=== PATIENT | male | born 1965 | race Caucasian/White ===

== ENCOUNTER 2024-01-02 18:16 | Emergency (ER) | payer BC, SELFPAY ==
[2024-01-02 18:17] VITALS: BP 155/105
[2024-01-02 18:20] LABS: Glucose - Point of Care 123 mg/dl (70-99)
[2024-01-02 18:57] VITALS: BMI 31.7
[2024-01-02 19:02] VITALS: BP 153/97
[2024-01-02 20:00] VITALS: BP 159/94
[2024-01-02] MEDS: POLYTRIM OPHTHALMIC SOLUTION 1 DROP OPHTH (20:15)
[2024-01-02 20:23] LABS: % Basophils 0.6 % (0-2); % Eosinophils 1.1 % (0-6); % Immature Granulocytes 0.4 % (0-0.5); % Lymphocytes 22.7 % (20.5-51.1); % Monocytes 12.2 % (1.7-9.3); Absolute Eosinophils 0.1 10^3/uL (0-0.7); Absolute Lymphocytes 1.6 10^3/uL (1.2-3.4); Absolute Monocytes 0.9 10^3/uL (0.1-0.6); Absolute Neutrophils 4.5 10^3/uL (1.4-6.5); Hematocrit 46.9 % (39.0-52.0); Hemoglobin 17.1 g/dL (13.0-18.0); Mean Corp Hgb Conc. 36.5 g/dL (33.0-37.0); Mean Corpuscular Hgb 31.8 pg (27.0-31.0); Mean Corpuscular Volume 87.3 fL (80.0-94.0); Mean Platelet Volume 9.5 fL (7.4-10.4); Nucleated Red Blood Cells % 0 % (-); Platelet Count 247 10^3/uL (130-400); Red Blood Cell Count 5.37 10^6/uL (4.70-6.10); Red Cell Dist. Width 12.2 % (11.5-14.5); White Blood Cell Count 7.2 10^3/uL (4.8-10.8)
--- NOTE | 2024-01-02 20:32 | ED.GENMED ---
History of Present Illness
General
Chief Complaint: Weakness
Source: patient
Exam Limitations: none
Time Seen by Provider: 01/02/24 19:18
Nursing documentation reviewed up to this point in time: agreed with
Travel History
Have you had any contact with someone who has COVID-19?: No
Do you have any symptoms of coronavirus? Fever > 100 degrees, chills, cough, shortness of breath, sore throat, loss of taste or smell, muscle aches, or headache?: No
History of Present Illness
History of Present Illness:
Patient is a 58-year-old man who reports that he was cooking dinner for his children and developed sudden onset of generalized weakness, lightheadedness, chest pain, and mild shortness of breath. Patient attributes his symptoms to recently starting
[place], however, he denies any nausea, vomiting and diarrhea. Patient reports that the episode occurred about 4 hours ago. He reports he now feels completely back to himself and denies all complaints. He no longer has any shortness of breath or
chest pain. He denies leg pain and leg swelling. He denies a history of PE and DVT. In addition, patient reports that his right eye feels irritated, has been slightly red, and feels as though his upper and lower eyelids are sticky. Patient also
reports occasional floaters from his right eye, however, he denies eye pain and headache.
Past History
Past History
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
ED Past Surgical History: None, Orthopedic (Left wrist surgery, ), Urological (Status post vasectomy, ) and Other (Thymoma)
Social History
Tobacco: Non-smoker
Alcohol: Occasional
Drug: Other
Personal:
Living: with family
Employment: Employed
Family History
Family History: Negative Diabetes, Hypertension or CAD
Review of Systems
Review of Systems
Allergies reviewed?: Yes
All Other Systems: ROS reviewed and negative except as documented in HPI and ROS
Constitutional: Reports fatigue
EENT: Reports other (Right eye redness)
Respiratory: Reports trouble breathing
Cardiac: Reports chest pain
ABD/GI: Reports no symptoms
: Reports no symptoms
Musculoskeletal: Reports no symptoms
Skin: Reports no symptoms
Neurological: Reports no symptoms
Endocrine: Reports no symptoms
Hematologic/Lymphatic: Reports no symptoms
Psychiatric: Reports no symptoms
Phy Exam
Physical Exam
Physical Exam:
Physical Exam
General: no apparent distress, not acutely ill. Patient appears very well and comfortable appearing, smiling and conversational
Neck: supple. no meningeal signs. normal psoterior pharynx. Right eye appears injected. No global tenderness
Heart: s1/s2 regular rate and rhythm, no murmur. equal radial pulses.
Lungs: no acute respiratory distress. clear bilaterally
Abdomen: normal bowel sounds. not tender. no CVAT
Neuro: alert and oriented. no focal neurological deficits
Skin: no rash
Psychiatric: well kept. interactive and cooperative
Extremities: no edema. no calf tenderness. negative homans. good distal pulses
Course
Orders/Labs/Results
Orders:
Orders
01/02/24 19:58
EKG [Electrocardiogram (*1)] Stat
Reason for Study: Chest Pain
EKG- Treatment ONCE
01/02/24 20:02
Polymyxin B/Trimethoprim [Polytrim Ophthalmic Solution] See Dose Instructions OPHTH NOW STA
01/02/24 20:16
Complete Blood Count/With Diff Urgent
Comprehensive Metabolic Panel Urgent
Troponin I Urgent
Abnormal Lab Results
01/02/24 01/02/24
18:19 20:16
MCH 31.8 H pg
(27.0-31.0)
Absolute Monos (auto) 0.9 H 10^3/uL
(0.1-0.6)
Monocytes % 12.2 H %
(1.7-9.3)
POC Glucose 123 H mg/dl
(70-99)
01/02/24 20:16
01/02/24 20:16
Vital Signs
Initial and Last Documented VS:
Initial Vital Signs
Temp Pulse Resp BP Pulse Ox
97.7 F 95 18 155/105 98
01/02/24 18:17 01/02/24 18:17 01/02/24 18:17 01/02/24 18:17 01/02/24 18:17
Last Documented Vital Signs
Temp Pulse Resp BP Pulse Ox
97.7 F 95 18 159/94 94
01/02/24 18:17 01/02/24 18:17 01/02/24 18:17 01/02/24 20:00 01/02/24 20:15
MDM/Problems Addressed
Differential Diagnosis Includes:
Acute coronary syndrome, acute dehydration, pneumonia
MDM/Problems Addressed:
Patient presents with acute chest pain and fatigue but is now completely gone
Acute Exacerbation and/or Progression of Chronic Illness: HTN
*Pulse Oximetry
Patient hypoxic: no
*EKG
Interpreted by ED Provider?: Yes
Interpretation: abnormal
Comparison EKG: no changes
Rate: normal
Rhythm: sinus
[place]: left axis deviation
Interval: normal interval
QRS Pattern: normal QRS
Ischemia: non-specific ST changes
*[employer] Interpretation
Rate: normal
Interpretation: normal
Rhythm: sinus
*Critical Care Note
Total Time (30-74mins, 75-104mins- exclusive of procedures): Not Applicable
Data Reviewed
Review of Other/Old Records Reveals: Testing (Cardiac echo from 2021 showed no abnormalities)
Source: patient
Update Note
Update Note:
Patient remains very well appearing and has been chest pain-free for hours in the emergency department. Clinically there is no sign of pneumonia or heart failure. It is doubtful patient has acute coronary syndrome given that he feels well and
comfortable and has a normal troponin. Patient encouraged to return with any further chest pain or shortness of breath
ED Attending Note
-
Portions of this chart may have been created with voice recognition software.� Occasional wrong word or��sound alike� substitutions may have occurred due to the inherent limitations of voice recognition software.
Discharge Plan
Departure
Patient Disposition: Home (Routine Discharge)
Date of Disposition: 01/02/24
Time of Disposition: 21:00
Patient with high blood pressure during this ER visit?: Yes
Condition: Good
Covid-19: Not Applicable
Discharge Problem:
Chest pain in adult, Acute conjunctivitis, right eye
Instructions: Conjunctivitis ([facility]) ED, Chest Pain PCP Follow Up, BLOOD PRESSURE
Prescriptions:
No Action
doxycycline hyclate 100 mg capsule
100 mg PO BID Qty: 19 0RF
Referrals:
Ron Ruiz MD [Active] - (Call tomorrow to follow up for your right eye)
Heladio Chang MD [Family Provider] -
Activity Restrictions/Additional Instructions:
Please return with any further chest pain or shortness of breath. Please call ophthalmology for follow-up.
Use 2 drops of Trimeth-Polymyxin eye drops into your right eye 4 times a day for 5 to 7 days
Interventions
Interventions:
*Risk Screen - Suicide Last Done: 01/02/24 18:17
*General Assessment Last Done: 01/02/24 18:17
*Neglect/Abuse Screening Last Done: 01/02/24 18:17
ED- Fall Risk Assessment Last Done: 01/02/24 18:57
*ED COVID-19 Vaccine History Last Done: 01/02/24 18:17
*Nursing Disposition Last Done: 01/02/24 21:32
ED- Cardiac Assessment Last Done: 01/02/24 18:57
ED- Neurological Assessment Last Done: 01/02/24 18:57
ED- Pulmonary Assessment Last Done: 01/02/24 18:57
Discharge Date and Time
Discharge Date/Time: 01/02/24 21:32
Print Language: UPPER SORBIAN
[2024-01-02 20:42] LABS: ALT (SGPT) 40 U/L (0-50); AST (SGOT) 34 U/L (17-59); Albumin 4.3 g/dl (3.5-5.0); Alkaline Phosphatase 70 U/L (38-126); Blood Urea Nitrogen 15 mg/dl (9-20); Calcium 9.4 mg/dl (8.4-10.2); Carbon Dioxide 23 mmol/L (22-30); Chloride 104 mmol/L (98-107); Estimated Creatinine Clearance 112 ml/min; Glucose 81 mg/dl (70-99); Sodium 137 mmol/L (135-145); Total Bilirubin 0.8 mg/dl (0.2-1.3); Total Protein 6.7 g/dl (6.3-8.2); eGFR > 60.00
[2024-01-02 20:47] LABS: Troponin I < 0.012 ng/ml
== END 2024-01-02 21:32 | disposition home or self-care (01) ==
LOC: EMR 18:16
PROVIDERS: EMERGENCY PHYSICIAN Emergency Medicine; FAMILY PHYSICIAN Internal Medicine
DX: R07.89 Other chest pain (principal); H10.31 Unspecified acute conjunctivitis, right eye; I10 Essential (primary) hypertension; Z85.238 Personal history of other malignant neoplasm of thymus
CPT/HCPCS: 99283; 80053; 82962; 84484; 85025; 93005